=== PATIENT | female | born 1940 | race Caucasian/White ===

== ENCOUNTER 2017-10-23 11:30 | Inpatient (IN) | payer MEDICARE, OTHER ==
[~2017-10-23] VITALS: Ht 154.9 cm; Wt 93.9 kg
[~2017-10-23 11:30] MED LIST: LEVO.125 PO; LOSA25TA PO; OMEP20TA93 PO; PROBCAP4 PO; SIMV40TA PO; SLOWTAB PO; UBIQ1CAP4 PO; VAGI10TA VAGINAL
[2017-10-25] MEDS ORDERED: FISHCAP4 PO (12:34)
[2017-10-25] MEDS ORDERED: COEN50CH CHEW (12:34)
[2017-10-25] MEDS ORDERED: MULTTAB67 PO (12:34)
[2017-10-25] MEDS ORDERED: CHOL400D2 PO (12:34)
[2017-10-25] MEDS ORDERED: CALC1TAB53 PO (12:34)
[2017-10-25] MEDS ORDERED: BACL20TA PO (12:34)
[2017-10-25] MEDS ORDERED: B-COTAB30 PO (12:34)
[2017-10-25] MEDS ORDERED: MAG-TAB PO (12:34)
[2017-10-25] MEDS ORDERED: ASCO500C PO (12:34)
[2017-10-25] MEDS ORDERED: LYSI1000 PO (12:34)
[2017-10-25] MEDS ORDERED: OCUVTAB4 PO (12:34)
[2017-10-25] MEDS ORDERED: ACET-898 PO (12:34)
[2017-10-25] MEDS ORDERED: TURM500C7 PO (12:34)
[2017-10-25] MEDS ORDERED: ASPI81TA23 PO (12:34)
[2017-11-06] MEDS ORDERED: POVIDONE IODINE 7.5% SCRUB 118 ML BOTTLE TOPICAL SCH (09:00)
[2017-11-06] MEDS ORDERED: CHLORHEXIDINE GLUCONATE 2 % 1 PACK (2 CLOTHS) TOPICAL PRN (09:00)
[2017-11-06] MEDS ORDERED: POVIDONE IODINE 5% (ANTISEPSIS KIT) 4 APPLICATIONS EACH NARE PRN (09:00)
[2017-11-06] MEDS ORDERED: SODIUM CHLORID 0.9% 500 ML IV PRN (09:00)
[2017-11-06] MEDS ORDERED: LACTATED RINGER'S 1000 ML IV PRN (09:00)
[2017-11-06] MEDS ORDERED: DEXAMETHASONE SOD PHOS 20 MG/5 ML VIAL IV SCH (09:00)
[2017-11-06] MEDS ORDERED: METOPROLOL TARTRATE 25 MG TAB PO PRN (09:00)
[2017-11-06 09:39] VITALS: PULSE 88
[2017-11-06] MEDS ORDERED: BUPIVACAINE LIPOSOME PF 1.3% 20 ML VIAL ONE (09:39)
[2017-11-06] MEDS ORDERED: SODIUM CHLORIDE 0.9% IV SCH ×2 (10:00→16:00)
[2017-11-06] MEDS ORDERED: ROPIVACAINE PERI-ARTICULAR INJECTION. P-ARTICULR SCH ×5 (10:00)
[2017-11-06] MEDS ORDERED: TRANEXAMIC ACID IV SCH ×2 (10:00→16:00)
[2017-11-06] MEDS ORDERED: ACETAMINOPHEN 1000 MG/100 ML 100 ML IV ONE (10:45)
[2017-11-06] MEDS: VANCOMYCIN 1000 MG/NS 250 ML (for <70 kg) IV SCH ×4 (10:47→12:57)
[2017-11-06] MEDS ORDERED: GENTAMICIN SULFATE 80 MG/2 ML VIAL ONE ×2 (11:02→11:20)
[2017-11-06] MEDS: ceFAZolin 2 GM PREMIX 50 ML IV SCH ×2 (11:08→12:55)
[2017-11-06] MEDS ORDERED: LACTATED RINGER'S 1000 ML INJ 1,000 ML IV ONE (12:00)
[2017-11-06] MEDS ORDERED: LIDOCAINE HCL 1% PF 5 ML SYRINGE OTHER ONE (12:00)
[2017-11-06] MEDS ORDERED: PROPOFOL 200 MG/20 ML AMP IV ONE (12:00)
[2017-11-06] MEDS ORDERED: PROPOFOL 200 MG/20 ML AMP ONE (12:37)
--- NOTE | 2017-11-06 13:21 | PD.OP ---
cc: Kushal Yañez MD Operative Report Date of Surgery: Nov 06, 2017 Preoperative Diagnosis: Left knee severe osteoarthritis Postoperative Diagnosis: Same Procedure: Left total knee arthroplasty Anesthesia: Spinal and adductor canal block Surgeon: Kushal Yañez Law Office Receptionist(s): JORGE Albrecht The surgical procedure was assisted by my Advanced Registered Nurse Practitioner. My RAIL WASHER presence was necessary throughout this case for the manipulation and positioning of the surgical extremity. My RAIL WASHER was assisting me throughout the duration of this procedure. The skill set of an Advance Registered Nurse Practitioner was medically necessary to complete this procedure. During the surgical case, the surgical coordinator was working at the back table and the Advance Registered Nurse Practitioner was directly assisting me. Operation and Findings: IMPLANTS: DePuy Attune: Patella: size 35. Femur, posterior stabilized size 5. Tibia, rotating platform size 4. Tibial insert, rotating platform, posterior stabilized size 5 mm thickness. ESTIMATED BLOOD LOSS: 100 cc TOURNIQUET TIME: 34 minutes at 250 mmHg pressure. JUSTIFICATION FOR PROCEDURE: The patient has end-stage osteoarthritis to the knee. There is an attached conservative measures pathway form in the chart that describes the nonoperative measures that were undertaken prior to consideration of surgical management. The patient understood the risks and benefits of surgical management. See my office notes for further details PROCEDURE: The patient was brought back to the operative theatre. Adequate anesthesia was obtained. The patient received intravenous vancomycin and Ancef. The lower extremity was prepped and draped in the usual sterile fashion.The leg was exsanguinated, the tourniquet was raised. A standard anterior incision was performed followed by medial parapatellar arthrotomy was performed. End-stage arthritis was identified. There is a moderate joint effusion which was clear yellow fluid. There was moderate synovitis within the suprapatellar pouch but looks all within normal limits. No evidence of osteomyelitis or deep infection was noted. Osteotomy of the patella was performed. We drilled holes for the patella. We trialed the patella component. We placed an intramedullary guide into the distal femur. We ultimately resected 13 mm off of the distal femur in 5 degrees of valgus. 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 Osteotomy of the proximal tibia was performed, resecting 6 mm off of the medial side. This was done with 3 degrees of posterior slope using an extramedullary guide. The distal end of the guide was placed in the mid aspect of the ankle. The femur was sized, and four chamfer cuts were completed in 3 of external rotation. We confirmed this using the epicondylar axis as well. We then cut the central box in the distal femur to replace the PCL. We resected the remnants of the menisci and removed osteophytes off of the femur and tibia. We then trialed the knee. We punched the tibia for the keel, and then used standard technique to cement in components. Excess cement was removed. We trialed the knee again and the final polyethylene thickness was chosen to provide extension to 0 degrees, and flexion of 140 degrees to gravity. The ligaments were appropriately balanced. Lateral release was necessary to obtain excellent patellofemoral tracking. The tourniquet was released and adequate hemostasis was obtained. An intra- articular injection of a ropivacaine cocktail was injected. The posterior knee was inspected for excess cement, which was removed. The final polyethylene was put into position after thorough irrigation. We then closed deep fascia with a #2 Stratafix followed by skin with 2-0 Vicryl followed by Dermabond dressing. Postop plan is to weight-bear as tolerated. DVT prophylaxis will be performed with SCDs, AISHWARYA grewal, early mobilization, and Lanoxin followed by aspirin. Kushal Yañez MD Nov 06, 2017 13:21
[2017-11-06] MEDS ORDERED: DO NOT ADM ANY ANTICOAGULANT DRUGS PRN (13:51)
[2017-11-06] MEDS ORDERED: MIDAZOLAM HCL 2 MG/2 ML VIAL ONE ×2 (13:55→17:22)
--- NOTE | 2017-11-06 14:19 | RADRPT ---
EXAM DATE/TIME: 11/06/2017 14:04 [facility] COMPARISON: No previous studies available for comparison. INDICATIONS : Post op left knee surgery. MEDICAL HISTORY : Hypertension. Cardiovascular disease. SURGICAL HISTORY : Tonsillectomy. ENCOUNTER: Initial ACUITY: 1 day PAIN SCORE: 0/10 LOCATION: Left knee. FINDINGS: AP and lateral views of the knee following arthroplasty reveals a prosthesis in anatomic alignment. F racture is not appreciated. Surgical drain is evident CONCLUSION: Status post total knee arthroplasty. Zia Randolph MD FACR Board Certified Radiologist. This report was verified electronically.
[2017-11-06] MEDS: SODIUM CHLOR 0.9% 1000 ML INJ 1,000 ML IV SCH ×2 (14:45→22:37)
[2017-11-06] MEDS ORDERED: ONDANSETRON HCL 4 MG/2 ML VIAL IVP PRN (14:45)
[2017-11-06] MEDS ORDERED: NALOXONE HCL 0.4 MG/ML AMP IV PUSH PRN (14:45)
[2017-11-06] MEDS ORDERED: diphenhydrAMINE HCL 50 MG/ML VIAL IV PUSH PRN (14:45)
--- NOTE | 2017-11-06 14:57 | HHI.DCPOC ---
Discharge Care Plan Diagnosis: (1) Primary localized osteoarthrosis, lower leg (2) Status post total knee replacement, left Your Health Problems Are: Difficulty with ADL Goals to Promote Your Health * To prevent worsening of your condition and complications * To maintain your health at the optimal level Directions to Meet Your Goals Take your medications as prescribed Follow your dietary instruction Follow activity as directed Keep your appointments as scheduled Take your immunizations and boosters as scheduled If your symptoms worsen call your PCP, if no PCP go to Urgent Care Center or Emergency Room Smoking is Dangerous to Your Health. Avoid second hand smoke Call the 24-hour hour crisis hotline for domestic abuse at Mario Barboza Nov 06, 2017 14:57
--- NOTE | 2017-11-06 14:58 | HHI.FF ---
Face to Face Verification Diagnosis: (1) Primary localized osteoarthrosis, lower leg (2) Status post total knee replacement, left Physical Therapy Gait training, Transfer training, bed to chair Knee: Total knee Left LE Weight Bearing: WB as tolerated Left LE Range of Motion: Active ROM Nursing Nursing: Ronak smith Dressing Changes: Do not change dressing Additional Instructions First dressing change in the office I have seen patient Maria Fernanda Almeida on 11/06/17. My clinical findings support the need for the requested home health care services because: Limited ability to care for self High risk of falls I certify that my clinical findings support that this patient is homebound because: Post-op weakness Unsteady gait/balance Mario Barboza Nov 06, 2017 14:58
[2017-11-06] MEDS ORDERED: MAGNESIUM HYDROXIDE SUSP 30 ML CUP PO PRN (15:00)
[2017-11-06] MEDS ORDERED: Post-op Orders (for Pharmacy) XX ONE (15:00)
[2017-11-06] MEDS ORDERED: COMMODE 3-IN-11 MIS (15:00)
[2017-11-06] MEDS ORDERED: WALKER WHEELS/F1 MIS (15:00)
[2017-11-06] MEDS ORDERED: BISACODYL 10 MG SUPP RECTAL PRN (15:00)
[2017-11-06] MEDS ORDERED: MORPHINE SULFATE 2 MG/ML INJ IV PUSH PRN (15:00)
[2017-11-06] MEDS ORDERED: ALUMINUM/MAGNESIUM/SIMETH 30 ML CUP PO PRN (15:00)
[2017-11-06] MEDS ORDERED: CPMMACHINE (15:00)
[2017-11-06] MEDS ORDERED: *morphine SULFATE 4 MG/ML PERIprocedure ONLY ONE ×4 (15:02→17:28)
[2017-11-06] MEDS ORDERED: HYDROmorphone HCL PF 2 MG/ML VIAL ONE (16:02)
[2017-11-06] MEDS ORDERED: *MEPERIDINE 25 MG INJ VIAL PERIprocedural Use ONLY ONE (16:04)
[2017-11-06] MEDS ORDERED: BUPIVACAINE HCL PF 0.25% 30 ML VIAL ONE (16:46)
[2017-11-06 18:00] VITALS: BP 170/72; PULSE 118; RESP 18; TEMP 96.6; O2SAT 97
[2017-11-06 20:00] VITALS: BP 185/74; PULSE 118; RESP 16; TEMP 96.5; O2SAT 99
[2017-11-06] MEDS ORDERED: BACLOFEN 20 MG TAB PO SCH (21:00)
[2017-11-06] MEDS ORDERED: PRAVASTATIN SOD 80 MG TAB PO SCH (21:00)
[2017-11-06] MEDS ORDERED: ZOLPIDEM TARTRATE 5 MG TAB PO PRN (21:00)
[2017-11-06] MEDS: ACETAMINOPHEN/HYDROcodone 325 MG/5 MG TAB PO PRN (22:25)
[2017-11-07] VITALS: BP 104/51; PULSE 106; RESP 16; TEMP 96.8; O2SAT 96
[2017-11-07] MEDS: ACETAMINOPHEN/HYDROcodone 325 MG/5 MG TAB PO PRN ×3 (02:26→11:40)
[2017-11-07 06:00] VITALS: BP 96/48; PULSE 103; RESP 16; TEMP 97.7; O2SAT 94
[2017-11-07] MEDS ORDERED: LEVOTHYROXINE SODIUM 125 MCG TAB PO SCH (06:00)
[2017-11-07] MEDS ORDERED: DEXAMETHASONE SOD PHOS 20 MG/5 ML VIAL IV ONE (07:45)
[2017-11-07 07:57] VITALS: BP 128/60; PULSE 104; RESP 19; TEMP 98; O2SAT 99
[2017-11-07 08:46] VITALS: O2SAT 92
[2017-11-07] MEDS ORDERED: LOSARTAN 25 MG TAB PO SCH (09:00)
[2017-11-07] MEDS ORDERED: PANTOPRAZOLE SOD 20 MG DELAYED RELEASE TAB PO SCH (09:00)
[2017-11-07] MEDS: SODIUM CHLOR 0.9% 1000 ML INJ 1,000 ML IV SCH (10:45)
[2017-11-07 11:37] VITALS: BP 167/72; PULSE 107; RESP 19; TEMP 98.1; O2SAT 100
--- NOTE | 2017-11-07 12:45 | PD.CONS ---
[facility] By [facility] surgery Reason for Consult Medical management Primary Care Physician William Young MD Diagnoses: History of Present Illness 77 year-old female with a history of Hypertension, severe left knee osteoarthritis who despite medical management including NSAIDs, corticosteroid injection, physical therapy continue to have severe left knee pain affecting her daily living up activity including ambulation. Patient was taken to the operating room yesterday 11/06/17 and underwent left total knee arthroplasty. [facility] was consulted for medical management. Past Family Social History Allergies: Coded Allergies: ciprofloxacin (Verified Allergy, Mild, MUSCLE WEAKNESS, 10/25/17) Past Medical History Hypertension Hypothyroidism OA left knee Past Surgical History s/p Left TKA KELLEY Reported Medications See EMR Family History Noncontributory Social History Denies tobacco, alcohol or illicit drug intake Physical Exam Vital Signs Vital Signs Date Time Temp Pulse Resp B/P (MAP) Pulse Ox O2 Delivery O2 Flow Rate FiO2 11/07/17 11:37 98.1 107 19 167/72 (103) 100 11/07/17 08:46 92 21 11/07/17 07:57 98.0 104 19 128/60 (82) 99 11/07/17 06:00 97.7 103 16 96/48 (64) 94 11/07/17 03:05 18 11/07/17 00:00 96.8 106 16 104/51 (68) 96 11/06/17 23:14 18 11/06/17 23:11 Room Air 11/06/17 20:00 96.5 118 16 185/74 (111) 99 11/06/17 18:00 96.6 118 18 170/72 (104) 97 11/06/17 17:25 97.6 100 15 148/64 (92) 100 Nasal Cannula 2 11/06/17 17:15 102 15 158/78 (104) 100 Nasal Cannula 2 11/06/17 16:45 100 15 137/64 (88) 100 Nasal Cannula 2 11/06/17 16:15 102 16 134/57 (82) 100 Nasal Cannula 2 11/06/17 15:45 75 15 105/53 (70) 100 Nasal Cannula 2 11/06/17 15:15 83 16 134/56 (82) 100 Nasal Cannula 2 11/06/17 14:45 97 16 147/67 (93) 100 Nasal Cannula 2 11/06/17 14:30 96 17 142/63 (89) 100 Nasal Cannula 2 11/06/17 14:15 95 15 140/72 (94) 100 Nasal Cannula 2 11/06/17 14:00 96 15 145/62 (89) 99 Nasal Cannula 2 11/06/17 13:47 97.5 105 15 136/63 (87) 99 Nasal Cannula 2 Physical Exam GENERAL: This is a well-nourished, well-developed patient, in no apparent distress. SKIN: No rashes, ecchymoses or lesions. Cool and dry. HEAD: Atraumatic. Normocephalic. No temporal or scalp tenderness. EYES: Pupils equal round and reactive. Extraocular motions intact. No scleral icterus. No injection or drainage. ENT: Nose without bleeding, purulent drainage or septal hematoma. Throat without erythema, tonsillar hypertrophy or exudate. Uvula midline. Airway patent. NECK: Trachea midline. No JVD or lymphadenopathy. Supple, nontender, no meningeal signs. CARDIOVASCULAR: Regular rate and rhythm without murmurs, gallops, or rubs. RESPIRATORY: Clear to auscultation. Breath sounds equal bilaterally. No wheezes , rales, or rhonchi. GASTROINTESTINAL: Abdomen soft, non-tender, nondistended. No hepato-splenomegaly , or palpable masses. No guarding. MUSCULOSKELETAL: left knee repair-neurovascular intact NEUROLOGICAL: Awake and alert. Cranial nerves II through XII intact. Motor and sensory grossly within normal limits. Five out of 5 muscle strength in all muscle groups. Normal speech. Assessment and Plan Assessment and Plan 77-year-old female with Status post Left total knee arthroplasty Management per orthopedic surgery Continue current postop care PT to treat and eval DVT prophylaxis per orthopedic surgery Hypertension , Hypothyroidism and other chronic medical conditions Continue outpatient medications DVT prophylaxis: Lee Phillips MD Nov 07, 2017 12:45
--- NOTE | 2017-11-07 12:47 | PD.ORT.PN ---
Subjective Post Op Day #: 1 Subjective Remarks Patient is OOB in chair with c/o mild pain to the left knee. Patient had trouble with nerve block and ended up receiving another nerve block post op which was successful. Patient has been ambulatory and is requesting to go home today with home health. Objective Vitals Vital Signs Date Time Temp Pulse Resp B/P (MAP) Pulse Ox O2 Delivery O2 Flow Rate FiO2 11/07/17 11:37 98.1 107 19 167/72 (103) 100 11/07/17 08:46 92 21 11/07/17 07:57 98.0 104 19 128/60 (82) 99 11/07/17 06:00 97.7 103 16 96/48 (64) 94 11/07/17 03:05 18 11/07/17 00:00 96.8 106 16 104/51 (68) 96 11/06/17 23:14 18 11/06/17 23:11 Room Air 11/06/17 20:00 96.5 118 16 185/74 (111) 99 11/06/17 18:00 96.6 118 18 170/72 (104) 97 11/06/17 17:25 97.6 100 15 148/64 (92) 100 Nasal Cannula 2 11/06/17 17:15 102 15 158/78 (104) 100 Nasal Cannula 2 11/06/17 16:45 100 15 137/64 (88) 100 Nasal Cannula 2 11/06/17 16:15 102 16 134/57 (82) 100 Nasal Cannula 2 11/06/17 15:45 75 15 105/53 (70) 100 Nasal Cannula 2 11/06/17 15:15 83 16 134/56 (82) 100 Nasal Cannula 2 11/06/17 14:45 97 16 147/67 (93) 100 Nasal Cannula 2 11/06/17 14:30 96 17 142/63 (89) 100 Nasal Cannula 2 11/06/17 14:15 95 15 140/72 (94) 100 Nasal Cannula 2 11/06/17 14:00 96 15 145/62 (89) 99 Nasal Cannula 2 11/06/17 13:47 97.5 105 15 136/63 (87) 99 Nasal Cannula 2 I/O 11/06/17 11/06/17 11/06/17 11/07/17 11/07/17 11/07/17 07:00 15:00 23:00 07:00 15:00 23:00 Intake Total 1500 ml 1425 ml 200 ml Output Total 600 ml 250 ml 300 ml Balance 900 ml 1175 ml -100 ml Intake IV Total 1500 ml 1425 ml 200 ml Output Urine Total 500 ml 250 ml 300 ml Estimated Blood Loss 100 ml Imaging Last 24 hours Impressions Knee X-Ray 11/06/17 1314 Signed Impressions: Service Date/Time: Monday, November 06, 2017 14:04 - CONCLUSION: Status post total knee arthroplasty. Zia Randolph MD Procedures Left TKA Objective Remarks Patient's dressing is C/D/I. EHL/TA/G intact. Calf is soft and nontender. 2+ pedal pulse. + SILT. Assessment & Plan Ortho Post Op Day #: 1 Problem List: Assessment and Plan POD #1: left TKA 1. WBAT LLE 2. Lovenox followed by ASA for DVT prophylaxis 3. Ice to the left knee PRN 4. Stable for discharge home today with home health today 5. F/U in the office with Dr. Yañez and JORGE Costa as previously scheduled. Mario Barboza Nov 07, 2017 12:47
[2017-11-07] MEDS ORDERED: ENOXAPARIN SODIUM 40 MG/0.4 ML SYRINGE SQ SCH (13:00)
[2017-11-07] MEDS ORDERED: DOCUSATE SODIUM 100 MG CAP PO SCH (21:00)
[2017-11-07] MEDS ORDERED: MULTIVITAMINS/MINERALS THERAPEUTIC TAB PO SCH (21:00)
[2017-11-08] MEDS ORDERED: PNEUMOCOCCAL POLYVALENT INJ 25 MCG/0.5 ML SYR IM ONE (10:00)
[2017-11-08] MEDS ORDERED: INFLUENZA VIRUS VACCINE (QUADRIVALENT) 0.5 ML SYR IM ONE (10:00)
--- NOTE | 2017-11-11 21:09 | HHI.DS ---
Discharge Summary Admission Date Nov 06, 2017 at 08:23 Discharge Date: Nov 07, 2017 Admitting Diagnosis Primary localized OA, lower leg Status post total knee replacement, left Diagnosis: (1) Primary localized osteoarthrosis, lower leg Diagnosis: Principal ICD Codes: M17.10 - Unilateral primary osteoarthritis, unspecified knee (2) Status post total knee replacement, left Diagnosis: Principal ICD Codes: Z96.652 - Presence of left artificial knee joint Procedures Left TKA Brief History This is a 77 year old female patient with severe OA of the left knee. PE at Discharge Patient's dressing is C/D/I. EHL/TA/G intact. Calf is soft and nontender. 2+ pedal pulse. + SILT. Hospital Course The patient was admitted to the hospital for severe OA of the left knee to have a left TKA. The patient's surgery went well without complication. The patient is WBAT on the LLE. The patient is on a regular diet. The patient is on Lovenox followed by ASA for DVT prophylaxis. The patient was discharged home with home health. The patient will f/u in the office with Dr. Yañez or JORGE Costa as previously scheduled. Pt Condition on Discharge: Stable Discharge Disposition: Disch w/ Home Health Serv Discharge Instructions Diet Instructions: As Tolerated, No Restrictions Activities You Can Perform: Weight Bearing as Elliott Activities to Avoid: Strenuous Activity Follow up Referrals: Orthopedics with Kushal Yañez MD New Medications: Commode 3-in-1 (Commode 3-in-1) 1 Mis Mis EA .XX DIRECTED, #1 0 Refills CPM-Continuous Passive Motion Machine (CPM-Continuous Passive Motion Machine) 1 Ea Device EA .XX DIRECTED, #1 0 Refills Walker with Front Wheels (Walker with Front Wheels) 1 Mis Mis EA .XX DIRECTED, #1 0 Refills Continued Medications: Ascorbic Acid (Vitamin C) 500 Mg Capsule 1000 MG PO DAILY Baclofen (Baclofen) 20 Mg Tab 20 MG PO HS for Muscle Spasm, TAB 0 Refills Ubvfayc-Ocjsrmhno-Skmf (Calcium & Magnesium + Zinc) 334-134-5 Mg Tab 1 TAB PO DAILY, TAB Cholecalciferol (Vitamin D) 400 Unit/Ml Drops 1400 UNITS PO DAILY, #1 BOTTLE Estradiol Vaginal (Vagifem Vaginal) 10 Mcg Vagtab 10 MCG VAGINAL 2XWEEK for Estrogen Supplements, TAB 0 Refills Folic Acid/Vit B Complex and C (Super B Complex Tablet) 400 Mcg Tablet 1 TAB PO DAILY Levothyroxine (Synthroid) 125 Mcg Tab 125 MCG PO DAILY for Thyroid, #30 TAB 0 Refills Losartan (Losartan) 25 Mg Tab 50 MG PO DAILY for Blood Pressure Management, #15 TAB 0 Refills Lysine HCl (Lysine) 1,000 Mg Tab 2000 MG PO DAILY Magnesium Chloride-Calcium Carbonate (Slow-Mag) 71.5-119 Mg Tab 1 TAB PO 4X WEEK Multiple Vitamin (Multiple Vitamin) 1 Tab 1 TAB PO DAILY for Nutritional Supplement, TAB 0 Refills Multiple Vitamins W/ Minerals (Preservision Areds) 1 Tab 1 TAB PO BID for Nutritional Supplement, TAB 0 Refills Omeprazole (Omeprazole) 20 Mg Tab 20 MG PO DAILY, #30 TAB 0 Refills Probiotic Product (Probiotic Acidophilus) 1 Cap Cap 1 CAP PO DAILY Simvastatin (Simvastatin) 40 Mg Tab 40 MG PO HS for Cholesterol Management, #30 TAB 0 Refills Discontinued Medications: Acetaminophen (Acetaminophen Extra Strength) 500 Mg Tablet 1000 MG PO TID PRN for pain Aspirin DR (Aspirin EC) 81 Mg Tabdr 81 MG PO DAILY, TAB 0 Refills Coenzyme Q10 (Ubidecarenone) (Coq10 Gummies Adult) 50 Mg Chew 100 MG CHEW HS, #1 BOTTLE Fish Oil-Cholecalciferol (Fish Oil + D3) 1,200-1,000 Mg-Unit Cap 2400 CAP PO DAILY for Nutritional Supplement, #30 CAP 0 Refills Turmeric Root Extract (Turmeric) 500 Mg Capsule 2000 MG PO DAILY Ubiquinone (Ultra Coq10) 75 Mg Cap 100 CAP PO HS Mario Barboza Nov 11, 2017 21:09
== END 2017-11-07 13:33 | disposition home health service (06) | DRG 470 ==
LOC: HSDI 11-06 08:23 → N06A 11-06 17:54
PROVIDERS: ADMIT Orthopaedic Surgery; ATTEND Orthopaedic Surgery
PROC: 3E0T3BZ Introduction of Anesthetic Agent into Peripheral Nerves and Plexi, Percutaneous Approach (ICD-10-PCS; 2017-11-06)
PROC: 0SRD0J9 Replacement of Left Knee Joint with Synthetic Substitute, Cemented, Open Approach (ICD-10-PCS; principal; 2017-11-06 11:12)
DX: M17.12 Unilateral primary osteoarthritis, left knee (principal); I10 Essential (primary) hypertension; E03.9 Hypothyroidism, unspecified; E78.5 Hyperlipidemia, unspecified; K21.9 Gastro-esophageal reflux disease without esophagitis; E66.9 Obesity, unspecified; Z68.39 Body mass index [BMI] 39.0-39.9, adult; M65.9 Synovitis and tenosynovitis, unspecified; M25.462 Effusion, left knee
CPT/HCPCS: 73560; 76937; 86850; 86900; 86901; 94150; C1776; C9290; J0131; J0690; J0735; J1100; J1170; J1580; J1650; J1885; J2175; J2250; J2270; J2795; J3010; J3370; J7030; J7050; J7120; L1830

== ENCOUNTER → 2017-10-25 | Outpatient (CLI) | payer MEDICARE, OTHER ==
[~2017-10-25] MED LIST changes: +ACET-703 PO; +ACET-898 PO; +ASCO500C PO; +ASPI1TAB69 PO; +ASPI81TA23 PO; +B-COTAB30 PO; +BACL20TA PO; +CALC1TAB53 PO; +CALCTAB11 PO; +CHOL400D2 PO; +COEN50CH CHEW; +CYCL10TA PO; +FISH120014 PO; +FISHCAP4 PO; +LYSI1000 PO; +MAG-TAB PO; +MULT-135 PO; +MULTTAB67 PO; +OCUVTAB4 PO; +PRESCAP5 PO; +SUPETAB20 PO; +TURM1TAB PO; +TURM500C7 PO; +VITA10007 PO; +VITA400T2 PO; +[UNRECOGNIZED DRUG - OTHER] PO
[2017-10-25 12:31] LABS: AUTOMATED NEUTROPHIL # 3.8 TH/MM3 (1.8-7.7); BASOPHIL % 0.6 % (0.0-2.0); EOSINOPHIL # 0.2 TH/MM3 (0-0.4); EOSINOPHIL % 2.7 % (0.0-4.0); HEMATOCRIT 39.4 % (35.0-46.0); HEMOGLOBIN 13.6 GM/DL (11.6-15.3); LYMPHOCYTE # 1.4 TH/MM3 (1.0-4.8); MEAN CORPUSCULAR HEMOGLOBIN 31.5 PG (27.0-34.0); MEAN CORPUSCULAR HGB CONC 34.6 % (32.0-36.0); MEAN PLATELET VOLUME 7.1 FL (7.0-11.0); MONO % 11.1 % (0.0-8.0); MONOCYTE # 0.7 TH/MM3 (0-0.9); NEUT % 62.6 % (16.0-70.0); PLATELET COUNT 293 TH/MM3 (150-450); RED BLOOD COUNT 4.33 MIL/MM3 (4.00-5.30); RED CELL DISTRIBUTION WIDTH 13.1 % (11.6-17.2)
[2017-10-25 12:46] LABS: ALBUMIN 3.5 GM/DL (3.4-5.0); AST (GOT) 20 U/L (15-37); BICARBONATE 29.2 MEQ/L (21.0-32.0); BLOOD UREA NITROGEN 13 MG/DL (7-18); CALCIUM 9.5 MG/DL (8.5-10.1); CHLORIDE 104 MEQ/L (98-107); CREATININE 0.84 MG/DL (0.50-1.00); GLOMERULAR FILTRATION RATE 66 ML/MIN (>89); GLUCOSE,FASTING 78 MG/DL (74-99); SODIUM (NA) 140 MEQ/L (136-145)
[2017-10-25 12:50] LABS: WESTERGREN SEDIMENTATION RATE 7 mm/hr (0-30)
[2017-10-25 12:50] LABS: ALKALINE PHOSPHATASE 67 U/L (45-117); ALT (GPT) 24 U/L (10-53); TOTAL BILIRUBIN ADULT 0.4 MG/DL (0.2-1.0); TOTAL PROTEIN 6.6 GM/DL (6.4-8.2)
[2017-10-25 13:07] LABS: BACTERIA, URINE RARE /hpf; BILIRUBIN, URINE NEG (NEG); BLOOD, URINE NEG (NEG); GLUCOSE,URINE NEG (NEG); KETONE, URINE NEG (NEG); MUCUS URINE FEW /lpf (OCC); NITRITE,URINE NEG (NEG); SQUAMOUS EPITHELIAL CELL URINE 1 /hpf (0-5); URINE COLOR LIGHT-YELLOW (YELLW/STRAW); URINE LEUKOCYTE ESTERASE TRACE (NEG)
--- NOTE | 2017-10-25 14:09 | RADRPT ---
EXAM DATE/TIME: 10/25/2017 13:13 [facility] COMPARISON: No previous studies available for comparison. INDICATIONS : Evalutae for pneumonia, pneumothorax, and communicable disease. Pre-op left knee surgery. MEDICAL HISTORY : Hypertension. Cardiovascular disease SURGICAL HISTORY : Tonsillectomy. Right knee surgery. ENCOUNTER: Initial ACUITY: 1 day PAIN SCORE: 0/10 LOCATION: Bilateral chest FINDINGS: PA and lateral views of the chest demonstrate the lungs to be symmetrically aerated without evidence of mass, infiltrate or effusion. The cardiomediastinal contours are unremarkable. Osseous structure s are intact. CONCLUSION: No acute disease. Lee Zhang MD on October 25, 2017 at 14:05 Board Certified Radiologist. This report was verified electronically.
--- NOTE | 2017-10-28 23:12 | EKG ---
Date Performed: 10/25/2017 Time Performed: 12:13:16 PTAGE: 77 years EKG: Sinus rhythm NORMAL ECG PREVIOUS TRACING : 07/28/2016 07.03 DOCTOR: Brien Bennett Interpretating Date/Time 10/28/2017 23:10:03
== END ==
LOC: CPRE 12:59
PROVIDERS: ATTEND Orthopaedic Surgery
DX: Z01.812 Encounter for preprocedural laboratory examination (principal); Z01.811 Encounter for preprocedural respiratory examination; Z01.810 Encounter for preprocedural cardiovascular examination; M79.609 Pain in unspecified limb; M25.50 Pain in unspecified joint; M17.12 Unilateral primary osteoarthritis, left knee; Z96.60 Presence of unspecified orthopedic joint implant
CPT/HCPCS: 36415; 71046; 80053; 81001; 85025; 85610; 85652; 85730; 93005